=== PATIENT | male | born 1945 | race Caucasian/White ===

== ENCOUNTER → 2021-05-01 | Day surgery (SDC) | payer OTHER ==
[2021-05-01 15:36] VITALS: BP 125/65
== END | disposition home or self-care (01) ==
LOC: SURG 15:30
PROVIDERS: ATTEND Anesthesiology
DX: M54.12 Radiculopathy, cervical region (principal); I10 Essential (primary) hypertension; M19.90 Unspecified osteoarthritis, unspecified site; F32.9 Major depressive disorder, single episode, unspecified; F41.9 Anxiety disorder, unspecified; E11.9 Type 2 diabetes mellitus without complications; Z86.73 Personal history of transient ischemic attack (TIA), and cerebral infarction without residual deficits; Z96.653 Presence of artificial knee joint, bilateral; Z98.890 Other specified postprocedural states; Z88.0 Allergy status to penicillin; Z79.899 Other long term (current) drug therapy; Z98.1 Arthrodesis status; Z88.8 Allergy status to other drugs, medicaments and biological substances
CPT/HCPCS: 99205; G0463

== ENCOUNTER → 2021-05-22 | Day surgery (SDC) | payer OTHER ==
[~2021-05-22] MED LIST: 0.9 % SODIUM CHLORIDE 10 ML VIAL. ONE; AMLO-187 PO; ASPI-630 PO; ATORVASTATIN CA80 MG PO; DEXAMETHASONE SOD PHOS 10 MG/ML VIAL. ONE; EMPA25TA3 PO; GLARGINE; INSU100I13 SQ; IOHEXOL 300 MG/ML 50 ML VIAL. ONE; LIDOCAINE 1% PF 30 ML VIAL. ONE; LISI1TAB39 PO; METF10007 PO; MULT-445 PO; PREG100C PO; SERT-269 PO
[2021-05-22 11:53] VITALS: BP 139/76
== END | disposition home or self-care (01) ==
LOC: SURG 10:42
PROVIDERS: ATTEND Anesthesiology
DX: M54.12 Radiculopathy, cervical region (principal); I10 Essential (primary) hypertension; F32.9 Major depressive disorder, single episode, unspecified; F41.9 Anxiety disorder, unspecified; E11.9 Type 2 diabetes mellitus without complications; Z98.890 Other specified postprocedural states; M19.90 Unspecified osteoarthritis, unspecified site; Z86.73 Personal history of transient ischemic attack (TIA), and cerebral infarction without residual deficits; Z96.653 Presence of artificial knee joint, bilateral; Z88.0 Allergy status to penicillin; Z98.1 Arthrodesis status; Z79.899 Other long term (current) drug therapy; Z88.8 Allergy status to other drugs, medicaments and biological substances; Z79.82 Long term (current) use of aspirin; Z79.4 Long term (current) use of insulin
CPT/HCPCS: 62321; A4209; A4657; A4930; J1100; Q9967

== ENCOUNTER → 2021-06-19 | Day surgery (SDC) | payer OTHER ==
[~2021-06-19] MED LIST changes: -0.9 % SODIUM CHLORIDE 10 ML VIAL. ONE; -DEXAMETHASONE SOD PHOS 10 MG/ML VIAL. ONE; -IOHEXOL 300 MG/ML 50 ML VIAL. ONE; -LIDOCAINE 1% PF 30 ML VIAL. ONE
[2021-06-19 09:40] VITALS: BP 147/70
== END | disposition home or self-care (01) ==
LOC: SURG 09:31
PROVIDERS: ATTEND Anesthesiology
DX: M54.12 Radiculopathy, cervical region (principal); I10 Essential (primary) hypertension; E11.9 Type 2 diabetes mellitus without complications; F41.9 Anxiety disorder, unspecified; F32.9 Major depressive disorder, single episode, unspecified; M19.90 Unspecified osteoarthritis, unspecified site; Z88.0 Allergy status to penicillin; Z98.1 Arthrodesis status; Z88.8 Allergy status to other drugs, medicaments and biological substances; Z79.82 Long term (current) use of aspirin; Z79.4 Long term (current) use of insulin; Z96.653 Presence of artificial knee joint, bilateral; Z86.73 Personal history of transient ischemic attack (TIA), and cerebral infarction without residual deficits
CPT/HCPCS: 99214; G0463